=== PATIENT | male | born 1960 | race Caucasian/White ===

== ENCOUNTER 2016-12-05 19:39 | Emergency (ER) | payer MEDICAID, OTHER ==
[~2016-12-05] VITALS: Ht 175.3 cm; Wt 64.8 kg
[2016-12-05 19:48] VITALS: BP 143/80
[2016-12-05] MEDS ORDERED: HYDROcodone/APAP 5/325 TABLET ONE (21:00)
[2016-12-05] MEDS ORDERED: HYDROcodone/APAP 5/325 TABLET PO ONE (21:00)
== END 2016-12-05 21:24 | disposition home or self-care (01) ==
LOC: ED 21:04
DX: S62.522A Displaced fracture of distal phalanx of left thumb, initial encounter for closed fracture (principal); X58.XXXA Exposure to other specified factors, initial encounter; Y93.89 Activity, other specified; Y92.89 Other specified places as the place of occurrence of the external cause; Y99.8 Other external cause status
CPT/HCPCS: 29125; 99284